=== PATIENT | male | born 1975 | race African-American/Black ===

== ENCOUNTER 2017-03-25 13:00 | Emergency (ER) | payer MEDICAID ==
[~2017-03-25] VITALS: Ht 175.3 cm; Wt 85.5 kg
[~2017-03-25 13:00] MED LIST: NAPR550 PO; Z.0.NO CURRENT MEDS
[2017-03-25 13:01] VITALS: BP 165/105; PULSE 99; RESP 18; TEMP 98.3; O2SAT 99
--- NOTE | 2017-03-25 13:43 | PD ---
HPI . low back pain Chief Complaint: Back/ Neck Pain or Injury Time Seen by Provider: 13:43 Travel History International Travel<30 days: No Contact w/Intl Traveler<30days: No Traveled to known affect area: No History of Present Illness HPI 42-year-old male here with complaints of low back pain that started Friday. Patient says that he has tried all of the [id number] remedies and there is no improvement. He is reporting excruciating 10/10 back pain. He denies any radiation to his lower extremities or elsewhere. He says the only thing that is providing relief is heat. He shows me his lower back and sacral area as the problem sites. He denies any bowel or bladder dysfunction. He has no saddle anesthesia. He is accompanied by his , Caroline. [facility] Social History Alcohol Use: No Tobacco Use: No Substance Use: No Allergies-Medications (Allergen,Severity, Reaction): Coded Allergies: No Known Allergies (Verified , 03/25/17) Reported Meds & Prescriptions Reported Meds & Active Scripts Active Flexeril (Cyclobenzaprine HCl) 5 Mg Tab 5 Mg PO TID Prednisone 50 Mg Tab 50 Mg PO DAILY Review of Systems General / Constitutional: No: Fever Eyes: No: Visual changes HENT: No: Headaches Cardiovascular: No: Chest Pain or Discomfort Respiratory: No: Shortness of Breath Gastrointestinal: No: Abdominal Pain Genitourinary: No: Dysuria Musculoskeletal: Positive: Pain (back pain) Skin: No Rash Neurologic: No: Weakness Psychiatric: No: Depression Endocrine: No: Polydipsia Hematologic/Lymphatic: No: Easy Bruising Physical Exam Narrative GENERAL: AAO x 3, no acute distress, Well-nourished, well-developed patient. SKIN: Warm and dry. No visible rashes or bruising. HEAD: Normocephalic and atraumatic. EYES: No scleral icterus. No injection or drainage. ENT: No nasal drainage noted. Mucous membranes pink. Airway patent. NECK: Supple, trachea midline. No JVD. CARDIOVASCULAR: Regular rate and rhythm without murmurs, gallops, or rubs. RESPIRATORY: Breath sounds equal bilaterally. No accessory muscle use. No rhonchi or rales. GASTROINTESTINAL: Abdomen soft, non-tender, nondistended. EXTREMITIES: No cyanosis or edema. Full range of motion of bilateral lower extremities. BACK: Nontender without obvious deformity. No CVA tenderness. Ambulatory. Straight leg raise negative bilaterally. Heel walk test negative. No paraspinal muscle tenderness. No spinous process tenderness. NEURO: CN II through XII intact. Lower extremity strength is normal bilaterally. PSYCH: AAO x 3, normal affect. Data Data Last Documented VS Vital Signs Date Time Temp Pulse Resp B/P Pulse Ox O2 Delivery O2 Flow Rate FiO2 03/25/17 14:43 87 18 136/91 96 Room Air 03/25/17 13:01 98.3 Orders Orphenadrine Inj (Norflex Inj) (03/25/17 14:00) Ketorolac Inj (Toradol Inj) (03/25/17 14:00) [facility] Medical Decision Making Medical Screen Exam Complete: Yes Emergency Medical Condition: Yes Medical Record Reviewed: Yes Differential Diagnosis Lumbago, lumbar radiculopathy, less likely cauda equina Narrative Course 42-year-old male here with complaints of low back pain that started Friday. Patient says that he has tried all of the [id number] remedies and there is no improvement. He is reporting excruciating 10/10 back pain. He denies any radiation to his lower extremities or elsewhere. He says the only thing that is providing relief is heat. He shows me his lower back and sacral area as the problem sites. He denies any bowel or bladder dysfunction. He has no saddle anesthesia. He is accompanied by his , Caroline. Patient seen and examined. He appears to have acute back pain with possible lumbar radiculopathy. I've explained to him that unfortunately I do not recommend any x-ray imaging at this time. I've explained to him that MRI would be the modality of choice. I discussed that ultimately he will need to follow-up with his primary care provider for further workup. I will go ahead and provided him with a course of muscle relaxers and anti- inflammatories. In the emergency room I have given him Norflex and Toradol. BP rechecked and improved. Patient verbalized understanding of instructions, questions were answered, and thanked me for their care. I advised them if their condition worsens, please return to the nearest emergency room for further care. Diagnosis Primary Impression: Lumbago Qualified Code: M54.5 - Acute low back pain without sciatica, unspecified back pain laterality Patient Instructions: General Instructions Additional Instructions: Please return to emergency department if your symptoms return or worsen. Follow up with your primary care provider. Take medications as prescribed. Med/Other Pt SpecificInfo: Prescription(s) given Scripts Cyclobenzaprine (Flexeril)5 Mg Tab5 Mg PO TID #21 TAB Prov:Sonia Bell DO 03/25/17 Prednisone 50 Mg Tab50 Mg PO DAILY #5 TAB Prov:Sonia Bell DO 03/25/17 Disposition: 01 DISCHARGE HOME Condition: Stable Trisha Sheldon March 25, 2017 13:43
[2017-03-25] MEDS ORDERED: CYCL5TAB PO (13:53)
[2017-03-25] MEDS ORDERED: PRED50 PO (13:53)
[2017-03-25] MEDS ORDERED: KETOROLAC TROMETHAMINE 60 MG/2 ML (IM) VIAL IM ONE (14:00)
[2017-03-25] MEDS ORDERED: ORPHENADRINE INJ 60 MG/2 ML AMP IM ONE (14:00)
[2017-03-25 14:43] VITALS: BP 136/91; PULSE 87; RESP 18; O2SAT 96
== END 2017-03-25 14:53 | disposition home or self-care (01) ==
LOC: NEPK 13:00
DX: M54.5 Low back pain (principal)
CPT/HCPCS: 96372; 99283; J1885; J2360